=== PATIENT | male | born 1970 | race African-American/Black ===

== ENCOUNTER 2017-10-07 23:24 | Emergency (ER) | payer BC ==
[~2017-10-07] VITALS: Ht 182.9 cm; Wt 79.4 kg
--- NOTE | 2017-10-08 00:55 | NUR ---
ER AT BEDSIDE FOR PT EVAL/UPDATE
[2017-10-08] MEDS ORDERED: ACETAMINOPHEN ES 500 MG TABLET PO ONE (01:00)
[2017-10-08] MEDS ORDERED: ONDANSETRON 4 MG/2 ML VIAL IV ONE (01:00)
[2017-10-08] MEDS ORDERED: CEFTRIAXONE 1 G in IV DEXTROSE 5% 50 ML IV ONE (01:00)
[2017-10-08] MEDS ORDERED: MORPHINE SULFATE 2 MG/1 ML DISP.SYRIN IV ONE (01:00)
[2017-10-08] MEDS ORDERED: AZITHROMYCIN 250 MG TABLET PO ONE (01:00)
[2017-10-08] MEDS ORDERED: IV NORMAL SALINE 1000 ML BAG IV ONE (01:00)
[2017-10-08 01:20] LABS: BASOPHILS % (AUTO) 0.6 % (0.0-2.0); EOSINOPHILS # (AUTO) 0.1 K/uL (0.0-0.7); EOSINOPHILS % (AUTO) 1.1 % (0.0-7.0); HEMATOCRIT 40.7 % (36.7-47.1); LYMPHOCYTES # (AUTO) 0.5 K/uL (20.0-40.0); LYMPHOCYTES % (AUTO) 10.1 % (20.5-51.5); MEAN CORPUSCULAR HEMOGLOBIN 31.3 uug (23.8-33.4); MEAN CORPUSCULAR HGB CONC 34 g/dL (32.5-36.3); MEAN CORPUSCULAR VOLUME 91.2 fL (73.0-96.2); MONOCYTES # (AUTO) 0.4 K/uL (2.0-10.0); MONOCYTES % (AUTO) 9.1 % (0.0-11.0); NEUTROPHILS # (AUTO) 3.7 K/uL (1.8-8.9); NEUTROPHILS % (AUTO) 79.1 % (38.5-71.5); PLATELET COUNT (AUTO) 158 K/uL (152-348); RED BLOOD CELL COUNT(AUTO) 4.47 MIL/uL (4.06-5.63); WHITE BLOOD COUNT (AUTO) 4.7 K/uL (3.6-10.2)
[2017-10-08 01:36] LABS: CREATININE 1.4 mg/dL (0.6-1.3); POTASSIUM 4.2 mmol/L (3.5-5.1)
[2017-10-08 01:41] LABS: BILIRUBIN,DIRECT 0.1 mg/dL (0.0-0.2); BILIRUBIN,TOTAL 0.4 mg/dL (0.2-1.0); TOTAL PROTEIN, SERUM 9.8 g/dL (6.4-8.2)
[2017-10-08] MEDS ORDERED: ACETAMINOPHEN ES 500 MG TABLET ONE (01:49)
[2017-10-08] MEDS ORDERED: AZITHROMYCIN 500 MG VIAL IV ONE (01:50)
[2017-10-08] MEDS ORDERED: MORPHINE SULFATE 2 MG/1 ML DISP.SYRIN ONE (01:50)
[2017-10-08] MEDS ORDERED: CEFTRIAXONE 1 G VIAL ONE (01:50)
[2017-10-08] MEDS ORDERED: ONDANSETRON 4 MG/2 ML VIAL ONE (01:50)
[2017-10-08] MEDS ORDERED: AZITHROMYCIN 250 MG TABLET ONE (01:52)
--- NOTE | 2017-10-08 02:17 | NUR ---
Patient discharged to home in stable conditon. Written and verbal after care instructions given. Patient verbalizes understanding of instructions. Ambulated from ER with stable gait. All belongings with patient. Patient will be driven home by in private vehicle.
[2017-10-08 02:23] VITALS: BP 123/70
[2017-10-10] MEDS ORDERED: ACET325T53 PO (18:02)
[2017-10-10] MEDS ORDERED: OSEL75CA PO (18:02)
== END 2017-10-08 02:24 | disposition home or self-care (01) ==
LOC: ER 23:31
DX: J18.9 Pneumonia, unspecified organism (principal); M79.1 Myalgia; F17.200 Nicotine dependence, unspecified, uncomplicated
CPT/HCPCS: 36415; 70030-TC; 71045; 83605; 85025; 85730; 87040; 93005; A4663; J0456; J0696; J2270; J2405; J7030; J7060; Q0144

== ENCOUNTER 2017-10-08 14:36 | Inpatient (IN) | payer BC ==
[~2017-10-08] VITALS: Ht 182.9 cm; Wt 82.1 kg
--- NOTE | 2017-10-08 15:15 | NUR ---
PT IS IN ROOM #2B. DR LIU EVALUATED THE PT.
[2017-10-08] MEDS ORDERED: ACETAMINOPHEN 325 MG TABLET PO ONE (15:30)
[2017-10-08] MEDS ORDERED: ACETAMINOPHEN ES 500 MG TABLET ONE (15:40)
[2017-10-08] MEDS ORDERED: IV NORMAL SALINE 1000 ML BAG IV ONE ×2 (15:45→16:00)
[2017-10-08 16:31] LABS: CREATININE 1.2 mg/dL (0.6-1.3); POTASSIUM 3.9 mmol/L (3.5-5.1)
[2017-10-08 16:36] LABS: BILIRUBIN,DIRECT 0.1 mg/dL (0.0-0.2); BILIRUBIN,TOTAL 0.4 mg/dL (0.2-1.0); TOTAL PROTEIN, SERUM 6.1 g/dL (6.4-8.2)
[2017-10-08 16:41] LABS: BASOPHILS % (AUTO) 0.7 % (0.0-2.0); EOSINOPHILS % (AUTO) 0.2 % (0.0-7.0); HEMATOCRIT 35.3 % (36.7-47.1); HEMOGLOBIN 12.1 g/dL (12.5-16.3); LYMPHOCYTES # (AUTO) 0.5 K/uL (20.0-40.0); LYMPHOCYTES % (AUTO) 11.7 % (20.5-51.5); MEAN CORPUSCULAR HEMOGLOBIN 31.3 uug (23.8-33.4); MEAN CORPUSCULAR HGB CONC 34 g/dL (32.5-36.3); MEAN CORPUSCULAR VOLUME 91.3 fL (73.0-96.2); MONOCYTES # (AUTO) 0.5 K/uL (2.0-10.0); MONOCYTES % (AUTO) 13.2 % (0.0-11.0); NEUTROPHILS # (AUTO) 3.1 K/uL (1.8-8.9); NEUTROPHILS % (AUTO) 74.2 % (38.5-71.5); PLATELET COUNT (AUTO) 127 K/uL (152-348); RED BLOOD CELL COUNT(AUTO) 3.87 MIL/uL (4.06-5.63); WHITE BLOOD COUNT (AUTO) 4.1 K/uL (3.6-10.2)
[2017-10-08] MEDS ORDERED: OSELTAMIVIR PHOSPHATE 75 MG CAPSULE PO SCH (18:00)
[2017-10-08] MEDS ORDERED: ONDANSETRON 4 MG/2 ML VIAL IV PRN (18:00)
[2017-10-08] MEDS ORDERED: MORPHINE SULFATE 2 MG/1 ML DISP.SYRIN IV PRN (18:00)
[2017-10-08] MEDS ORDERED: OSELTAMIVIR PHOSPHATE 75 MG CAPSULE ONE (18:59)
--- NOTE | 2017-10-08 19:30 | NUR ---
REPORT GIVEN TO [employer] RN.
[2017-10-08 20:00] VITALS: BP 116/71
--- NOTE | 2017-10-08 20:05 | NUR ---
Admitted patient from ER via wheelchair. DX: influenza. AAOx4, ambulatory. Routine admission care done. Plan of care initiated.
--- NOTE | 2017-10-08 20:08 | NUR ---
TRANSFERED TO 2ND FLOOR TELE VIA WHEELCHAIR
[2017-10-08] MEDS ORDERED: MORPHINE SULFATE 4 MG/1 ML DISP.SYRIN IV PRN (20:30)
[2017-10-08] MEDS: IV NS 1000 ML 1,000 ML IV PRN (21:04)
[2017-10-09 00:31] VITALS: BP 119/79
[2017-10-09] MEDS: ACETAMINOPHEN 325 MG TABLET PO PRN ×2 (00:55→05:39)
--- NOTE | 2017-10-09 00:57 | NUR ---
Temp 102.2 cooling measures initiated. Tylenol gr X given as needed and ordered. IVF infusing as ordered. Instructed patient to increase po fluid intake as tolerated. Will monitor.
--- NOTE | 2017-10-09 04:29 | NUR ---
Tempt 99.9. Cooling measures continuos. Tylenol given as needed and ordered, Will continue to monitor.
[2017-10-09 04:55] VITALS: BP 101/60
[2017-10-09] MEDS: PANTOPRAZOLE SODIUM 40 MG TABLET.DR PO SCH (05:39)
[2017-10-09 07:10] LABS: BASOPHILS % (AUTO) 0.8 % (0.0-2.0); HEMATOCRIT 35.7 % (36.7-47.1); HEMOGLOBIN 12.1 g/dL (12.5-16.3); LYMPHOCYTES # (AUTO) 1.1 K/uL (20.0-40.0); LYMPHOCYTES % (AUTO) 34.8 % (20.5-51.5); MEAN CORPUSCULAR HGB CONC 34 g/dL (32.5-36.3); MEAN CORPUSCULAR VOLUME 91.7 fL (73.0-96.2); MONOCYTES # (AUTO) 0.5 K/uL (2.0-10.0); MONOCYTES % (AUTO) 14.8 % (0.0-11.0); NEUTROPHILS # (AUTO) 1.6 K/uL (1.8-8.9); NEUTROPHILS % (AUTO) 49.6 % (38.5-71.5); PLATELET COUNT (AUTO) 110 K/uL (152-348); RED BLOOD CELL COUNT(AUTO) 3.89 MIL/uL (4.06-5.63); WHITE BLOOD COUNT (AUTO) 3.2 K/uL (3.6-10.2)
[2017-10-09 07:33] LABS: BILIRUBIN,TOTAL 0.4 mg/dL (0.2-1.0); MAGNESIUM 1.7 mg/dL (1.8-2.4); PHOSPHOROUS 2.5 mg/dL (2.5-4.9); POTASSIUM 3.8 mmol/L (3.5-5.1); TOTAL PROTEIN, SERUM 5.8 g/dL (6.4-8.2)
--- NOTE | 2017-10-09 08:00 | NUR ---
RESTING IN BED NO SS OF PAIN OR DISTRESS, CONTINUE FURTHER OBSERVATION FOR FLU. PT REMAINS ON TAMIFLU ORDERED
[2017-10-09] MEDS: OSELTAMIVIR PHOSPHATE 75 MG CAPSULE PO SCH ×2 (08:39→20:06)
[2017-10-09] MEDS: IV NS 1000 ML 1,000 ML IV PRN ×2 (08:44→21:59)
[2017-10-09] MEDS ORDERED: MAGNESIUM OXIDE 400 MG TABLET PO ONE (11:15)
[2017-10-09 11:51] VITALS: BP 116/75
--- NOTE | 2017-10-09 12:00 | NUR ---
AFEBRILE, CONTINUE WITH IVF AT 80 ML/HR
--- NOTE | 2017-10-09 15:50 | NUR ---
REMAINS ON LOW GRADE TEMPERATURE 99.9 ORALLY.
[2017-10-09 15:51] VITALS: BP 96/60
--- NOTE | 2017-10-09 19:00 | NUR ---
Received report from ESTELLE Batres. Patient awake with visitors at bedside. Denies any pain/discomforts at this time. IVF continuos via pump. Seen and evaluated by Dr. Boss with new order noted. Still with on and off non productive cough. Continue care as planned.
--- NOTE | 2017-10-09 20:00 | NUR ---
Temperature at midnight 102.8. Tylenol gr x given as orderede and needed. Cooling measures initiated. Continuos IVF as ordered and encouraged patient increased po fluid intake as tolerated. Will continue to monitor.,
[2017-10-09] MEDS ORDERED: GUAIFENESIN/DEXTROMETHORPHAN 5 ML UDC PO PRN (20:30)
[2017-10-09 20:32] VITALS: BP 124/83
[2017-10-10] MEDS: ACETAMINOPHEN 325 MG TABLET PO PRN ×2 (00:36→05:34)
[2017-10-10 04:00] VITALS: BP 112/74
[2017-10-10] MEDS: PANTOPRAZOLE SODIUM 40 MG TABLET.DR PO SCH (05:34)
--- NOTE | 2017-10-10 08:00 | NUR ---
CONTINUE OBSERVATION, REQUESTED FULL SHOWER, ASSISTED TO SHOWER ROOM
[2017-10-10] MEDS: OSELTAMIVIR PHOSPHATE 75 MG CAPSULE PO SCH (08:21)
[2017-10-10 08:22] LABS: BASOPHILS % (AUTO) 0.5 % (0.0-2.0); EOSINOPHILS % (AUTO) 0.3 % (0.0-7.0); HEMATOCRIT 36.4 % (36.7-47.1); HEMOGLOBIN 12.5 g/dL (12.5-16.3); LYMPHOCYTES # (AUTO) 1.2 K/uL (20.0-40.0); MEAN CORPUSCULAR HEMOGLOBIN 30.9 uug (23.8-33.4); MEAN CORPUSCULAR HGB CONC 34 g/dL (32.5-36.3); MEAN CORPUSCULAR VOLUME 90.4 fL (73.0-96.2); MONOCYTES # (AUTO) 0.4 K/uL (2.0-10.0); MONOCYTES % (AUTO) 9.7 % (0.0-11.0); NEUTROPHILS # (AUTO) 2.9 K/uL (1.8-8.9); NEUTROPHILS % (AUTO) 63.5 % (38.5-71.5); PLATELET COUNT (AUTO) 113 K/uL (152-348); RED BLOOD CELL COUNT(AUTO) 4.03 MIL/uL (4.06-5.63); WHITE BLOOD COUNT (AUTO) 4.6 K/uL (3.6-10.2)
[2017-10-10 08:45] LABS: BILIRUBIN,TOTAL 0.5 mg/dL (0.2-1.0); MAGNESIUM 1.6 mg/dL (1.8-2.4); PHOSPHOROUS 2.6 mg/dL (2.5-4.9); POTASSIUM 3.8 mmol/L (3.5-5.1); TOTAL PROTEIN, SERUM 5.9 g/dL (6.4-8.2)
--- NOTE | 2017-10-10 09:00 | NUR ---
"I FEEL A LOT BETTER" ATE BREAKFAST CONSUMED 100% OF FOOD PORTION. STILL WITH LOW GRADE FEVER MD AWARE
[2017-10-10 11:53] VITALS: BP 115/76
--- NOTE | 2017-10-10 12:00 | NUR ---
PATIENT STILL WITH LOW GRADE TEMP CONTINUE WITH PO ANTIBIOTIC, COOLING MEASURES AND IVF FOR HYDRATION
[2017-10-10] MEDS: IV NS 1000 ML 1,000 ML IV PRN (12:41)
[2017-10-10] MEDS ORDERED: MAGNESIUM OXIDE 400 MG TABLET PO ONE (12:45)
--- NOTE | 2017-10-10 15:00 | NUR ---
SEEN BY DR SALGUERO WITH ORDERS FOR DISCH. TOBACCO WEIGHER MADE AWARE
[2017-10-10 16:19] VITALS: BP 123/82
[2017-10-10] MEDS ORDERED: ACET325T53 PO (18:02)
[2017-10-10] MEDS ORDERED: OSEL75CA PO (18:02)
--- NOTE | 2017-10-10 18:53 | NUR ---
discharged home with rx and follow-up instruction with pcp
== END 2017-10-10 18:59 | disposition home or self-care (01) | DRG 152 ==
LOC: ER 14:36 → TELE 19:50 → MED 10-09 14:56
PROVIDERS: ADMIT Internal Medicine; ATTEND Internal Medicine
DX: J11.1 Influenza due to unidentified influenza virus with other respiratory manifestations (principal); N17.0 Acute kidney failure with tubular necrosis; E87.1 Hypo-osmolality and hyponatremia; E88.09 Other disorders of plasma-protein metabolism, not elsewhere classified; E86.0 Dehydration; R74.0 Nonspecific elevation of levels of transaminase and lactic acid dehydrogenase [LDH]
CPT/HCPCS: 36415; 71045; 83605; 83690; 83735; 84100; 85025; 87040; 87400; A4663; J7030